=== PATIENT | male | born 1945 | race Caucasian/White ===

== ENCOUNTER → 2016-09-28 | Outpatient (CLI) | payer MEDICARE | END | disposition home or self-care (01) | LOC: PCVCCLINIC 12:00 | PROVIDERS: ATTEND Internal Medicine Cardiovascular Disease | DX: I10 Essential (primary) hypertension (principal); E78.00 Pure hypercholesterolemia, unspecified; I25.10 Atherosclerotic heart disease of native coronary artery without angina pectoris; E11.9 Type 2 diabetes mellitus without complications | CPT/HCPCS: 80061; 93005; G0463 ==

== ENCOUNTER → 2017-03-01 | Outpatient (CLI) | payer MEDICARE | END | disposition home or self-care (01) | LOC: PCVCCLINIC 11:55 | PROVIDERS: ATTEND Internal Medicine Cardiovascular Disease | DX: I25.10 Atherosclerotic heart disease of native coronary artery without angina pectoris (principal); I10 Essential (primary) hypertension; E78.00 Pure hypercholesterolemia, unspecified; E11.9 Type 2 diabetes mellitus without complications; R00.1 Bradycardia, unspecified; D46.9 Myelodysplastic syndrome, unspecified; R53.83 Other fatigue; R06.09 Other forms of dyspnea; Z87.891 Personal history of nicotine dependence; Z79.82 Long term (current) use of aspirin; Z79.84 Long term (current) use of oral hypoglycemic drugs; Z79.899 Other long term (current) drug therapy | CPT/HCPCS: 80061; 93005; G0463 ==

== ENCOUNTER → 2017-03-04 | Outpatient (CLI) | payer MEDICARE ==
[~2017-03-04] MED LIST: REGADENOSON 0.4 MG/5 ML DISP.SYRIN. IV ONE
--- NOTE | 2017-03-11 18:55 | PCVCIMAG ---
APPROVED REPORT Exam: Nuclear Stress Test Indication: Dyspnea, Fatigue Patient Location: Out-Patient Stress Nurse: Abida Tang RN, NABIL Rosa Tech:Roderick Grullon NMTCB Ht: 5 ft 10 in Wt: 205 lbs BSA: 2.11 m2 HR: 68 bpm BP: 161/77 mmHg BMI: 29.4 Rhythm: NSR, Non-specific T abnormality Medical History Medical History: HTN, Hyperlipidemia, Diabetic Noninsulin, Smoking-Former Medications: ASA, Procrit, Fe, Glucophage, Toprol XL, Zocor, Prilosec Allergies: No known drug allergies Cardiac Risk Factors: Age Previous Cardiac Procedures: PCI Pretest Chest Pain Characteristics: No chest pain Exercise History: Physically active Physical Disabilities: Knees Meds Held (24 hrs): Toprol XL NM EXAM: Myocardial Perfusion REST/STRESS Imaging Protocol: Rest Tc-99m/Stress Tc-99m 1 day Resting Data Rest SPECT myocardial perfusion imaging was performed in supine position 465 minutes following the intravenous injection of 11.9 mCi of Tc-99m Sestamibi. Time of rest injection: 804 Date: 03/04/2017 Pharmacologic Stress Pharmacologic stress test was performed by injecting Regadenoson 0.4 mg IV push followed by the intravenous injection of 2.6 mCi of Tc-99m Sestamibi. Time of stress injection: 929 Date: 03/04/2017 Administration Route: IV Administration Site: Right AC Gated Stress SPECT was performed 45 minutes after stress injection. The images were gated to evaluate regional wall motion and calculate left ventricular ejection fraction. Study Quality Study: Good Study Data Post stress, the left ventricular ejection was 64%.. SSS: 0 SRS: 0 SDS: 0 TID = 1.16. Perfusion No evidence of stress induced ischemia or prior myocardial infarction. Wall Motion Normal left ventricular size and function with no regional wall motion abnormalities. Nuclear Conclusion No evidence of stress induced ischemia or prior myocardial infarction. Normal left ventricular size and function with no regional wall motion abnormalities. Post stress, the left ventricular ejection was 64%.. No prior study available for comparison. Interpreted by: Estevan Hernandez MD Electronically Approved: 03/06/2017 00:44:04 Stress Test Details Stress Test: Pharmacologic stress was paired with low level exercise. Reason for pharmacologic stress test: physical limitation. HR Resting HR: 73 bpmMax Heart Rate (APMHR): 148 bpm Max HR Achieved: 111 bpmTarget HR (85% APMHR): 125 bpm % of APMHR: 75 Recovery HR: 80 bpm BP Resting BP: 161/77 mmHg Max BP: 148/71 mmHg Recovery BP: 141/65 mmHg ECG Resting ECG: Sinus Rhythm, nonspecific ST-T abnormalities Stress ECG: Sinus Tachycardia Recovery ECG: Sinus Rhythm, nonspecific ST-T abnormalities Clinical Reason for Termination: , Chest pain/Anginal equivalent, Dyspnea, Dizziness, Leg pain/Claudication Stress Symptoms: Light-Headed Exercise duration: 4 min 00 sec Symptoms resolved during recovery. Stress ECG Conclusion ECG: Non-ischemic <Conclusion> ECG: Non-ischemic
== END | disposition home or self-care (01) ==
LOC: PCVCIMAG 07:46
PROVIDERS: ATTEND Internal Medicine Cardiovascular Disease
DX: I10 Essential (primary) hypertension (principal); E11.9 Type 2 diabetes mellitus without complications; E78.5 Hyperlipidemia, unspecified; R00.0 Tachycardia, unspecified; E78.00 Pure hypercholesterolemia, unspecified; I25.10 Atherosclerotic heart disease of native coronary artery without angina pectoris; Z87.891 Personal history of nicotine dependence; Z79.84 Long term (current) use of oral hypoglycemic drugs; Z79.82 Long term (current) use of aspirin
CPT/HCPCS: 78452; 93017; A9500; J2785

== ENCOUNTER → 2017-03-15 | Outpatient (CLI) | payer MEDICARE ==
[~2017-03-15] MED LIST changes: +ACETAMINOPHEN 500 MG TABLET PO ONE; +DIAZEPAM 10 MG TABLET. ONE; +IOHEXOL 350 MG/ML 100 ML VIAL. ONE; +IOHEXOL 350 MG/ML 50 ML VIAL. ONE; +IV NORMAL SALINE 1000ML BAG 1,000 ML ONE; +LIDOCAINE 1% Multi-Dose 20 ML VIAL. ONE; +MIDAZOLAM HCL/PF 2 MG/2 ML VIAL. ONE; -REGADENOSON 0.4 MG/5 ML DISP.SYRIN. IV ONE; +fentaNYL PF VIAL 100 MCG/2 ML VIAL ONE
--- NOTE | 2017-03-15 17:06 | PCVCINTER ---
APPROVED REPORT Patient Details Patient Status: Out-Patient Room #: 2 The patient is a 71 year-old Male Event Personnel Ladi Haynes MD, Alvaro Parra RN, Tori Walden RT(R)(), Genesis Germain RT(R) Risk Factors Arterial HypertensionDysplipidemia (Type: 1), HypercholesterolemiaPhysical Activity, Renal Failure, Diabetes (Control: Oral)Last Creatanine 1.2Tobacco History (Former), Dialysis Previous Procedures/Diagnoses Previous PCI, Previous Femoral Procedure, Previous Vascular Surgery, CAD, Hypertension, Diabetes Hemodynamics The aortic pressure is 130/55 mmHg with a mean of 80 mmHg. The left ventricular pressure is 116/5 mmHg with a mean of 7 mmHg. Conclusion Patient brought to the catheterization lab stable condition the right groin prepped draped sterile manner was negative juice for local anesthesia receiving conscious sedation 6 Estonian sheath arrival over the wire. She is straight pigtail catheter former single R ventricular AP aortogram. FL 4 for left Rajni system FR4 fluorite crisis. Multiple views obliques were taken. Mild three-vessel coronary disease previously placed stents were patent. LV function was preserved. I utilized a minx closure without complication. Patient tolerated well. Transfer back to see be holding. Hemodynamics aortic 130/56 LV 116/5 Impression #1 normal left ventricular size and systolic function #2 left main mild taper narrowingof Occlusive disease given rise to LAD and circumflex #3 LAD with mild proximal calcification extends around the apex widely patent. #4 circumflex OM essentially a dominant vessel supplying the inferior wall. No significant occlusive disease. #5 nondominant right with a previously placed stent is patent. #6 normal abdominal aorta without aneurysm or stenosis single renal arteries patent Recommendation continue aggressive risk factor modification echo Doppler obtained shows no elevated pulmonary pressures. Will refer to pulmonary for further evaluation. Although certainly myelodysplasia may cause some of his significant slide and demise here. Does not appear to be on a cardiovascular basis.
--- NOTE | 2017-03-15 17:07 | PCVCIMAG ---
APPROVED REPORT Study performed: 03/15/2017 16:29:56 EXAM: Comprehensive 2D, Doppler, and color-flow Echocardiogram Status: routine Other Information Study Quality: Adequate Risk Factors: Cardiac Risk Factors: HTN Indications Diabetes CAD s/p LAD, RCA stent, assess pulmonary pressures 2D Dimensions LVEF(%): 53.32 (>50%) IVSd: 12.75 (7-11mm) LVDd: 41.56 mm PWd: 11.69 (7-11mm) LVDs: 30.27 (25-40mm) Left Atrium: 38.57 (27-40mm) Aortic Root: 30.32 mm LV Single Plane 4CH: 58.04 % LV Single Plane 2CH: 55.35 %Sesay's LVEF: 56.69 % Biplane EF: 56.4 % Volumes Left Atrial Volume (Systole) Single Plane 4CH: 42.04 mLSingle Plane 2CH: 62.91 mL LA ESV Index: 26.00 mL/m2 Aortic Valve AoV Peak Cosme.: 1.45 m/s AO Peak Gr.: 8.39 mmHgLVOT Max P.98 mmHg LVOT Max V: 1.12 m/s Mitral Valve E/A Ratio: 1.2 MV Decel. Time: 250.73 ms MV E Max Cosme.: 0.60 m/s MV A Cosme.: 0.52 m/s IVRT: 124.57 ms TDI E/Lateral E': 8.50E/Medial E': 19.00 Pulmonary Valve PV Peak Cosme.: 0.98 m/sPV Peak Gr.: 3.86 mmHg Pulmonary Vein P Vein S: 0.24 m/sP Vein A: 0.30 m/s P Vein D: 0.33 m/sP Vein A Dur.: 134.9 msec P Vein S/D Ratio: 0.73 Tricuspid Valve TR Peak Cosme.: 2.09 m/s TR Peak Gr.: 17.52 mmHg Left Ventricle The left ventricle is normal size. There is normal LV segmental wall motion. Mild concentric left ventricular hypertrophy. Left ventricular systolic function is normal. The left ventricular ejection fraction is within the normal range. LVEF is 55-60%. Grade I - abnormal relaxation pattern. Right Ventricle The right ventricle is normal size. The right ventricular systolic function is normal. Atria Left atrium is mildly dilated. Right atrium is mildly dilated. Aortic Valve The aortic valve is normal in structure. No aortic regurgitation is present. There is no aortic valvular stenosis. Mitral Valve The mitral valve is normal in structure. There is no mitral valve regurgitation noted. No evidence of mitral valve stenosis. Tricuspid Valve The tricuspid valve is normal in structure. Trace tricuspid regurgitation with PAP of 25 mmHg. Pulmonic Valve The pulmonary valve is normal in structure. Mild pulmonic regurgitation. Great Vessels The aortic root is normal in size. IVC is normal in size and collapses with >50% inspiration Pericardium There is no pericardial effusion. <Conclusion> The left ventricle is normal size. Mild concentric left ventricular hypertrophy. LVEF is 55-60%. Grade I - abnormal relaxation pattern. The right ventricle is normal size. Left atrium is mildly dilated. Right atrium is mildly dilated. The aortic valve is normal in structure. There is no mitral valve regurgitation noted. There is no pericardial effusion. Trace tricuspid regurgitation with PAP of 25 mmHg.
== END ==
LOC: PCVCINTER 10:59
PROVIDERS: ATTEND Internal Medicine Cardiovascular Disease
DX: I25.10 Atherosclerotic heart disease of native coronary artery without angina pectoris (principal); I12.9 Hypertensive chronic kidney disease with stage 1 through stage 4 chronic kidney disease, or unspecified chronic kidney disease; E11.22 Type 2 diabetes mellitus with diabetic chronic kidney disease; N18.9 Chronic kidney disease, unspecified; E78.00 Pure hypercholesterolemia, unspecified; E78.5 Hyperlipidemia, unspecified
CPT/HCPCS: 75625; 93306; 93458; 99152; 99153; C1751; C1760; C1769; C1894; J2250; J3010; J7030; Q9967; J1644